=== PATIENT | female | born 1965 | race Caucasian/White ===

== ENCOUNTER 2016-12-18 09:27 | Emergency (ER) | payer OTHER ==
--- NOTE | ~2016-12-18 | CR170 ---
[facility] A Service of [facility] RADIOLOGY TEXT RESULTS PATIENT: CECILLE AMADO LOCATION: [facility] : 63 UNIT #: [id number] AGE: [address]: Krysten Garcia APRN SEX: F ORDER DR: [id number] [facility] [address] [place], [place] [address] [id number] E MR#: [id number] Acc #: [id number] NAME: CECILLE AMADO : 1965 SEX: F STUDY DATE/TIME: 12/18/2016 9:07 UNIT: [facility] ROOM: STUDY DESCRIPTION: CR Knee 2 Views Rt Attending Physician: Krysten Garcia A.P.R.N. Ordering Physician: Ed Doctor [id number] [facility] Primary Care Physician: Thierno Centeno M.D. MEDICAL IMAGING REPORT This report is preliminary unless electronic signature is present EXAM Right knee 12/18 INDICATIONS Tripped over dog this morning. Pain and swelling of the knee since that time. FINDINGS 2 views of the right knee were obtained. No comparison. There is patellofemoral osteoarthritis with spur formation. No fracture or malalignment is identified. There is no joint effusion. IMPRESSION Patellofemoral osteoarthritis, otherwise negative right knee. Dictated by... Mata Mahmood Jr., M.D. THIS IS AN ELECTRONICALLY VERIFIED REPORT Mata Mahmood Jr., M.D. at 12/18/2016 11:13 AM NARCISA/sohail TD: 12/18/2016 09:58 JOB #: [id number] MEDICAL IMAGING REPORT COPY
== END 2016-12-18 10:45 | disposition home or self-care (01) ==
LOC: CED 09:27
DX: S80.01XA Contusion of right knee, initial encounter (principal); E78.5 Hyperlipidemia, unspecified; W18.2XXA Fall in (into) shower or empty bathtub, initial encounter; Y92.009 Unspecified place in unspecified non-institutional (private) residence as the place of occurrence of the external cause
CPT/HCPCS: 29515; 73560; 99283